=== PATIENT | female | born 1960 | race Caucasian/White ===

== ENCOUNTER 2021-08-14 01:39 | Emergency (ER) | payer SELFPAY ==
[~2021-08-14] VITALS: Ht 167.6 cm; Wt 84.8 kg
[2021-08-14] MEDS ORDERED: KETOROLAC TROMETHAMINE 30 MG/ML VIAL IM STA (02:03)
[2021-08-14] MEDS ORDERED: HYDROCODONE/APAP 5MG-325MG TAB PO ONE (02:15)
[2021-08-14] MEDS ORDERED: KETOROLAC TROMETHAMINE 30 MG/ML VIAL ONE (02:27)
[2021-08-14] MEDS ORDERED: NAPROSYN500 MG PO (03:17)
[2021-08-14 03:23] VITALS: BP 156/94
== END 2021-08-14 03:23 | disposition home or self-care (01) ==
LOC: FSED 02:02
DX: R51.9 Headache, unspecified (principal); I10 Essential (primary) hypertension; J45.909 Unspecified asthma, uncomplicated; G25.81 Restless legs syndrome
CPT/HCPCS: 70450; 99283; J1885